=== PATIENT | female | born 1950 | race Caucasian/White ===

== ENCOUNTER 2020-02-06 16:58 | Inpatient (IN) | payer MEDICARE, OTHER ==
[~2020-02-06] VITALS: Ht 149.9 cm; Wt 53.5 kg
[2020-02-06] MEDS ORDERED: ATOR20TA PO (17:41)
[2020-02-06] MEDS ORDERED: ESCI10TA PO (17:41)
[2020-02-06] MEDS ORDERED: BENA5TAB5 PO (17:41)
[2020-02-06] MEDS ORDERED: OLAN5TAB3 PO (17:41)
[2020-02-06] MEDS ORDERED: HALO5AMP2 IJ (17:41)
[2020-02-06] MEDS ORDERED: DIGO250T PO (17:41)
[2020-02-06] MEDS ORDERED: TRAZ-257 PO (17:41)
[2020-02-06] MEDS ORDERED: ACET325T53 PO (17:41)
[2020-02-06] MEDS ORDERED: LEVO50TA8 PO (17:41)
[2020-02-06] MEDS ORDERED: CLOP75TA15 PO (17:41)
[2020-02-06] MEDS ORDERED: LORA2TAB95 PO (17:41)
[2020-02-06] MEDS ORDERED: LOSA100T3 PO (17:41)
[2020-02-06] MEDS ORDERED: ATEN100T PO (17:41)
[2020-02-06] MEDS ORDERED: ONDA4TAB11 PO (17:41)
[2020-02-06 17:59] VITALS: BP 144/84
[2020-02-06] MEDS ORDERED: BLOOD SUGAR DIAGNOSTIC 1 EACH STRIP IN ONE (18:00)
[2020-02-06] MEDS ORDERED: MAGNESIUM HYDROXIDE 30 ML UDC PO PRN (18:00)
[2020-02-06] MEDS ORDERED: ACETAMINOPHEN 325 MG TABLET PO PRN (18:00)
--- NOTE | 2020-02-06 18:02 | NUR ---
GPS/RN RECEIVED PT DIRECT ADMIT FROM Down [facility] (NOEL HAN) BEFORE FROM [facility] AND BEFORE FROM HOME. NO SI OR HI AT THE TIME OF ADMISSION. ADMITTING ORDERS FROM DR REYES RECEIVED AND CARRIED OUT. PROPERTY CHECKED FOR CONTRABAND AND WALLET PLACED IN THE ARC AND GAS WELDER'S SAFE. PT IS ON 5150 HOLD FOR DTS. PT'S AWARE OF ADMISSION AND SPOKE WITH THE PT OVER THE PHONE. PT IS AGITATED ADN, ANXIOUS AND REFUSED TO SIGN ADMITTING PAPERWORK AND REFUSED SKIN ASSESSMENT. SKIN DISCOLORATION BILAT HANDS NOTED. WILL ENDORSE TO CHIEF CONSOLE OPERATOR TO FOLLOW UP WITH ADMISSION.
--- NOTE | 2020-02-06 18:21 | NUR ---
GPS/RN PT REFUSED ACCUCHECK.
--- NOTE | 2020-02-06 18:50 | NUR ---
Dr. Choudhary made aware of the admission and gave orders.
--- NOTE | 2020-02-06 19:28 | NUR ---
RN NOTES: RECEVIED PT. FROM DAY NURSES TO CONTINUTY CARE, AND COMLPETE THE ADMISSION PROCESS.
[2020-02-06 20:11] VITALS: BP 138/64
--- NOTE | 2020-02-06 22:22 | NUR ---
ADMISSION NOTES: ADMITTED THIS 69Y/O FEMALE PATIENT ADMIT FROM [employer] ZONIA GARCIA ( NOEL HAN) BEFORE FROM [facility] AND BEFORE FROM HOME, ADMITTED TO GPS 5150 HOLD DTS, PER HOLD SI AND STATING SHE DOES NOT WANT TO LIVE ANY MORE DUE TO 1 WEEK ENDLESS PAIN,UPON FACE TO FACE ASSESSMENT PATIENT IS A&O X 2,3, UNCOOPERTIVE , EASILY AGITATED ,ANXIOUS ,PARANOID , DISORGNIZED ,DISHELVED, DEPREESED ,POOR HYGINE ,EASILY GETS AGITATED, DENIES SI /HI AT THIS TIME, PT. IS POOR HISTORIAN, POOR INSIGHT ,POOR JUDGEMENT , PT. REFUSED TO SIGNS ADMISSION CONSENT PAPERS, DUE TO MENTAL STATUS , REFUSED SHOWER AND REFUSED CHANGE TO THE HOSPITAL GOWN, DUE TO MENTAL STATUS , PT. REFUSED FULL BODY SKIN ASSESSMENT AND PICTURES TAKEN, ENCOURAGED X3 RISKS BENEFITS EXPLINED , PT. STRONGLY REFUSED ,BOTH MD AWARE AND NOTIFIED OF THE ADMISSION, BELONGINGS CONTRABAND WERE DONE ,PT. RIGHTS DISCUSS BY HAND TENNIS BALL COVERER , PROVIDE THE PT. WITH HANDBOOK, AND MEDICATIONS GUIDE, ENVIRONMENTAL SAFETY CHECK DONE, ENCOURAGED PT. VERBALIZED ANY FEELING CONCERN TO STAFF, ORIENT TO UNIT POLICY, NO ACUTE DISTRESS NOTED,VITAL SIGNS WNL ,DENIES ANY PAIN AT THIS TIME,WILL CONTINUE TO MONITOR FOR Q15 SAFETY AND BEHAVIOR.
--- NOTE | 2020-02-06 22:38 | NUR ---
RN NOTES : PT. REFUSED SKIN ASSESSMENT AND PICTURES TAKEN, BUT VISUALLY NOTED WITH SKIN DISCOLORATIONS ,ENCOURAGED X3 PT. STRONGLY REFUSED , AND PT. BEHAVIOR VERY UNCCOERTIVE AGGRESSIVE , WILL CONTINUITY WITH CARE.
--- NOTE | 2020-02-06 23:58 | NUR ---
RN NOTES : REFUSAL VACCINE PT. REFUSED PNEUMOCOCCAL AND INFLUENZA VACCINE ,ENCOURAGED X3, PT. STRONGLY REFUSED , AND PT. BEHAVIOR VERY UNCCOERTIVE AGGRESSIVE , PER PT. I AM GOING HOME SOONER , I DONT WANTS ANY VACCINE , WILL CONTINUITY WITH CARE.
--- NOTE | 2020-02-07 06:46 | NUR ---
GPS RN NOTES: PT. RESTING IN HER ROOM, PT.REMAINED STABLE THROUGHOUT SHIFT, NO S/S OF DISTRESS NOTED , ALL CARE NEEDS MET ANTICIPATED. MED COMPLIANT ,PT. BEHAVIOR ,PARANOID EASILY AGITATED, NEEDS FREQUENTLY REDIRECTIONS ,WILL CONTINUE TO MONITOR FOR SAFETY BEHAVIOR, AND ENDORSE TO AM SHIFT FOR CONTINUITY OF CARE.
[2020-02-07 07:03] LABS: ALBUMIN 3.2 g/dL (3.4-5.0); BILIRUBIN,TOTAL 0.3 mg/dL (0.2-1.0); CALCIUM, SERUM 8.7 mg/dL (8.5-10.1); CREATININE 0.7 mg/dL (0.6-1.3); POTASSIUM 3.5 mmol/L (3.5-5.1); TOTAL PROTEIN, SERUM 6.5 g/dL (6.4-8.2)
[2020-02-07] MEDS: LEVOTHYROXINE SODIUM 50 MCG TABLET PO SCH (07:03)
[2020-02-07 07:43] LABS: DIGOXIN 0.11 ng/mL (0.90-2.00)
[2020-02-07 08:36] VITALS: BP 153/90
[2020-02-07] MEDS: BENAZEPRIL HCL 5 MG TABLET PO SCH (08:38)
[2020-02-07] MEDS: LOSARTAN POTASSIUM 50 MG TABLET PO SCH (08:38)
[2020-02-07] MEDS: ATENOLOL 50 MG TABLET PO SCH (08:40)
[2020-02-07] MEDS: CLOPIDOGREL BISULFATE 75 MG TABLET PO SCH ×2 (08:40→08:45)
[2020-02-07] MEDS: DIGOXIN 0.25 MG TABLET PO SCH (08:41)
--- NOTE | 2020-02-07 09:12 | NUR ---
Pt. refused to take the Plavix tab, explained on the importance and still refusing and said she is not taking Plavix.
[2020-02-07] MEDS: OLANZAPINE 2.5 MG TABLET PO SCH ×2 (12:54→16:21)
[2020-02-07] MEDS ORDERED: OLANZAPINE 2.5 MG TABLET PO PRN (13:00)
[2020-02-07 16:00] VITALS: BP 156/75
--- NOTE | 2020-02-07 18:40 | NUR ---
Called [facility] to page Dr. Rehman regarding pt. is complaining of back pain and asking med.
--- NOTE | 2020-02-07 18:45 | NUR ---
Received a call from Dr. Rehman and ordered Tramadol 50 mg q6hr prn for pain
--- NOTE | 2020-02-07 19:00 | NUR ---
RECEIVED LIZZIE IN HER ROOM SITTING ON THE EDGE OF THE BED DOING CROOSWORD PUZZELS. C/O HER BACK IS IN PAIN AND THAT SHE HAS HAD 9 BACK SURGERIES. TRAMADOL ORDERED BY THE MD. SHE IS IRRITABLE VOICE INDICATED. SHE IS CONCERNED SHE NEED HER MEDICATIONS SHE IS REQUISTING A SLEEPING MEDICATION. HER GAIT IS STEADY SHE USES A WALKER
[2020-02-07 19:47] VITALS: BP 154/62
[2020-02-07] MEDS ORDERED: OLANZAPINE 10 MG TABLET PO SCH (20:00)
[2020-02-07] MEDS: TRAMADOL HCL 50 MG TABLET PO PRN (20:17)
[2020-02-07 20:33] VITALS: BP 154/62
[2020-02-07] MEDS: LORAZEPAM 0.5 MG TABLET PO PRN (21:45)
[2020-02-07] MEDS: ATORVASTATIN 10 MG TABLET PO SCH (21:47)
[2020-02-08] MEDS: TRAMADOL HCL 50 MG TABLET PO PRN ×2 (02:06→20:15)
--- NOTE | 2020-02-08 04:51 | NUR ---
CLOSING NOTES: SAT WITH PATIENT FOR 20 MINUTES AND ALLOWED HER TO TALK.SHE TALKED OF HER BACK SURGERY SHE STATED SHE HAS HAD 9 SURGERIES. SHE STATED SHE HAS BEEN TAKING NORCO FOR 18 YEARS "SHE IS NOT ADDICTED TO THE MEDICATION SHE TAKES IT BECAUSE IT WORKS" HER SON IS A DENTIST AND DTR A PSY MD SHE SPEAKS PROUDLY OF THEM. SHE DIDN'T MENTION HER IN THIS CONVERSATION' SHE DOES CROSSWORD PUZZULES SHE WAS AWAKE UNTIL 4AM AND THEN LAID DOWN IN HER BED.
[2020-02-08] MEDS: LEVOTHYROXINE SODIUM 50 MCG TABLET PO SCH (06:45)
[2020-02-08 08:00] VITALS: BP 123/61
[2020-02-08] MEDS: DIGOXIN 0.25 MG TABLET PO SCH (08:09)
[2020-02-08] MEDS: BENAZEPRIL HCL 5 MG TABLET PO SCH (08:09)
[2020-02-08] MEDS: OLANZAPINE 2.5 MG TABLET PO SCH ×2 (08:09→16:45)
[2020-02-08] MEDS: ATENOLOL 50 MG TABLET PO SCH (08:10)
[2020-02-08] MEDS: LOSARTAN POTASSIUM 50 MG TABLET PO SCH (08:10)
[2020-02-08] MEDS: CLOPIDOGREL BISULFATE 75 MG TABLET PO SCH (08:14)
[2020-02-08] MEDS ORDERED: HYDROCODONE/APAP 5/325MG TABLET PO PRN (08:30)
[2020-02-08] MEDS: HYDROCODONE/APAP 5/325MG TABLET PO PRN ×3 (08:34→22:55)
--- NOTE | 2020-02-08 08:36 | NUR ---
RN notes/pain medication Patient c/o of back pain and requested for Leola. PRN Leola 5/325mg tab given at 0834. Will continue to monitor and reassess pt.
--- NOTE | 2020-02-08 13:50 | NUR ---
RN notes Dr Nichols called with order to give pt Elavil 10mg @ HS. Informed him that he needs to sign consent for the medication and he said he will come tomorrow to sign. CN made aware. Will continue to monitor.
[2020-02-08 16:00] VITALS: BP 154/82
--- NOTE | 2020-02-08 16:50 | NUR ---
RN notes/pain medication Patient verbalized that she has back pain and requested for [place]. PRN [place] 5/325mg tab given at 1649. Will continue to monitor and reassess pt.
[2020-02-08 20:00] VITALS: BP 126/59
[2020-02-08] MEDS ORDERED: OLANZAPINE 5 MG TABLET PO SCH (20:00)
--- NOTE | 2020-02-08 20:15 | NUR ---
GPS/RN NOTE Patient c/o of back pain level 9 aching and throbbing. Administered PRN tramadol as ordered. VSS. Will continue to monitor.
[2020-02-08] MEDS: ATORVASTATIN 10 MG TABLET PO SCH (21:12)
--- NOTE | 2020-02-08 21:33 | NUR ---
GPS/RN OPENING NOTE Patient awake in bed, A/O x3 calm and cooperative. No acute distress or SOB noted. Patient denies pain, N/V/D. Patient is ambulatory with walker. Med compliant. Denies SI/HI. Needs met. Will continue to monitor for safety and behavior.
--- NOTE | 2020-02-08 22:56 | NUR ---
GPS/RN NOTE Patient c/o pain level 7, low back, throbbing and aching. Administered PRN norco as ordered. VSS. Will continue to monitor.
[2020-02-09] MEDS: LEVOTHYROXINE SODIUM 50 MCG TABLET PO SCH (06:28)
[2020-02-09 08:00] VITALS: BP 174/63
[2020-02-09] MEDS: BENAZEPRIL HCL 5 MG TABLET PO SCH (08:10)
[2020-02-09] MEDS: OLANZAPINE 2.5 MG TABLET PO SCH ×2 (08:10→16:24)
[2020-02-09] MEDS: HYDROCODONE/APAP 5/325MG TABLET PO PRN ×2 (08:10→19:41)
[2020-02-09] MEDS: LOSARTAN POTASSIUM 50 MG TABLET PO SCH (08:11)
[2020-02-09] MEDS: CLOPIDOGREL BISULFATE 75 MG TABLET PO SCH (08:12)
[2020-02-09] MEDS: ATENOLOL 50 MG TABLET PO SCH (08:12)
[2020-02-09] MEDS: DIGOXIN 0.25 MG TABLET PO SCH (09:00)
--- NOTE | 2020-02-09 09:33 | NUR ---
Held Digoxin patient pulse 57. Will continue to monitor.
--- NOTE | 2020-02-09 10:06 | NUR ---
GPS/RN Open Notes Patient resting in bed A/0 x2-3 calm and cooperative with no signs of distress. Able to communicate needs, ambulates with a steady gait. Denies HI/SI. Patient encouraged to verbalize feelings. Will continue to monitor behavior and safety.
--- NOTE | 2020-02-09 10:09 | NUR ---
FAMILY CONTACT: SW contacted pts daughter Arleth ([phone]) and left a voicemail for callback.
--- NOTE | 2020-02-09 10:45 | NUR ---
FAMILY CONTACT: SW contacted pts daughter Arleth ([phone]) who confirms pt is able to return once stable for discharge. Per daughter pt is currently under the care of psychiatrist Dr. Patrick Peña Address: [address], [place] [address] but states pt has a new psychiatrist whom she will be following up with Dr. Celean To Address: [address], [place] [address] .
--- NOTE | 2020-02-09 11:02 | NUR ---
INITIAL DISCHARGE PLAN: Pt wishes to return to her home [address] [place] [address]. SW contacted pts daughter Arleth ([phone]) who confirms pt is able to return once stable for discharge. WESLEY will help form a safe and proper discharge in collaboration with .
--- NOTE | 2020-02-09 13:20 | NUR ---
PATIENT REFUSED BLOOD DRAW AFTER EXPLAINING THE RISKS AND BENEFITS, PATIENT REFUSED AGAIN.
--- NOTE | 2020-02-09 13:34 | NUR ---
INFORMED DR. REYES ABOUT DR. ABAD ORDER ELAVIL 10 MG AT HS CONSENT TO BE SIGNED BY HER. DR. REYES SAID WILL HOLD ON THAT MEDICATION FOR NOW, CONSENT NOT SIGNED BY DR. REYES.
--- NOTE | 2020-02-09 14:44 | NUR ---
GROUP NOTE: SW encouraged pt to attend group therapy on this present day. Pt refused, pt is irritable and anxious stating she wants to leave today and states she does not need to be here. SW attempted to provide reality orientation and pt refused to engage.
[2020-02-09 16:00] VITALS: BP 149/59
[2020-02-09 19:36] VITALS: BP 146/71
--- NOTE | 2020-02-09 19:42 | NUR ---
GPS RN NOTES: UPPER BACK PAIN PT C/O OF 10/09 UPPER BACK PAIN. PT REQUEST NORCO PRN ORDERED. PT TOLERATED MEDICATION WELL. CONTINUE TO MONITOR
[2020-02-09] MEDS ORDERED: OLANZAPINE 2.5 MG TABLET PO SCH (20:00)
[2020-02-09 20:46] VITALS: BP 144/68
[2020-02-09] MEDS: ATORVASTATIN 10 MG TABLET PO SCH (21:10)
--- NOTE | 2020-02-09 21:10 | NUR ---
GPS RN NOTES: REFUSED LIPITOR PT REFUSED NLIPITOR ORDERED. EXPLAIN RISKS AND BENEFITS. PT STILL REFUSED X3. CONTINUE TO MONITOR
[2020-02-09] MEDS ORDERED: AMITRIPTYLINE HCL 10 MG TABLET PO SCH (22:00)
[2020-02-09 22:47] VITALS: BP 131/69
[2020-02-09] MEDS: LORAZEPAM 0.5 MG TABLET PO PRN (22:52)
--- NOTE | 2020-02-09 22:53 | NUR ---
GPS RN NOTES: ANXIOUS PT C/O OF FEELING ANXIOUS. VITALS CHECKED WNL. OFFERED ATIVAN PRN ORDERED. PT AGREED AND TOLERATED MEDICATION WELL. CONTINUE TO MONITOR.
[2020-02-10] MEDS: HYDROCODONE/APAP 5/325MG TABLET PO PRN ×3 (01:48→19:38)
--- NOTE | 2020-02-10 01:50 | NUR ---
GPS RN NOTES: UPPER BACK PAIN PT C/O OF 10/09 UPPER BACK PAIN. VITALS CHECKED WNL. NO SOB. NO RESP DISTRESS. BREATHING EVEN AND UNLABORED. PT REQUEST NORCO PRN ORDERED. PT TOLERATED MEDICATION WELL. CONTINUE TO MONITOR
[2020-02-10] MEDS: LORAZEPAM 0.5 MG TABLET PO PRN (05:00)
--- NOTE | 2020-02-10 05:01 | NUR ---
GPS RN NOTES: ANXIOUS UPON DOING ROUNDS, PT AWAKE AND CRYING. PT C/O OF FEELING ANXIOUS. VITALS CHECKED WNL. OFFERED ATIVAN PRN ORDERED. PT AGREED AND TOLERATED MEDICATION WELL. CONTINUE TO MONITOR.
[2020-02-10] MEDS: LEVOTHYROXINE SODIUM 50 MCG TABLET PO SCH (07:00)
[2020-02-10] MEDS: BLOOD SUGAR DIAGNOSTIC 1 EACH STRIP IN SCH ×3 (07:30→17:12)
[2020-02-10 08:00] VITALS: BP 170/66
[2020-02-10] MEDS: BENAZEPRIL HCL 5 MG TABLET PO SCH (08:58)
[2020-02-10] MEDS: ATENOLOL 50 MG TABLET PO SCH (08:58)
[2020-02-10] MEDS: OLANZAPINE 2.5 MG TABLET PO SCH ×2 (08:59→17:22)
[2020-02-10] MEDS: LOSARTAN POTASSIUM 50 MG TABLET PO SCH (08:59)
[2020-02-10] MEDS: CLOPIDOGREL BISULFATE 75 MG TABLET PO SCH (08:59)
[2020-02-10] MEDS: DIGOXIN 0.25 MG TABLET PO SCH (09:02)
--- NOTE | 2020-02-10 10:51 | NUR ---
RN-CO: PATIENT REFUSED LAB DRAW.
[2020-02-10 13:07] LABS: BASOPHILS # (AUTO) 0.1 /CMM (0.0-0.2); BASOPHILS % (AUTO) 2.3 % (0.0-2.0); EOSINOPHILS % (AUTO) 2.4 % (0.0-6.0); HEMATOCRIT 40 % (33-45); LYMPHOCYTES % (AUTO) 21.2 % (20.0-44.0); MEAN CORPUSCULAR HGB CONC 32 g/dl (31.0-36.0); MEAN CORPUSCULAR VOLUME 80 fL (82-100); MONOCYTES # (AUTO) 0.2 /CMM (0.1-1.30); MONOCYTES % (AUTO) 5.1 % (2.0-12.0); NEUTROPHILS # (AUTO) 3.1 /CMM (1.8-8.9); PLATELET COUNT (AUTO) 361 /CMM (150-450); RED BLOOD CELL COUNT(AUTO) 4.98 MIL/uL (4.0-5.2); WHITE BLOOD COUNT (AUTO) 4.5 K/uL (4.3-11.0)
[2020-02-10 13:23] LABS: BILIRUBIN,TOTAL 0.7 mg/dL (0.2-1.0); CALCIUM, SERUM 9.2 mg/dL (8.5-10.1); CREATININE 0.9 mg/dL (0.6-1.3); POTASSIUM 3.9 mmol/L (3.5-5.1); TOTAL PROTEIN, SERUM 7.6 g/dL (6.4-8.2)
--- NOTE | 2020-02-10 14:02 | NUR ---
RN NOTE:PATIENT C/O PAIN IN HER BACK MEDICATED WITH NORCO WILL CONTINUE TO MONITOR .
--- NOTE | 2020-02-10 14:45 | NUR ---
GROUP NOTE: SW encouraged pt to attend group on this day. Pt was asleep and not easily roused by verbal cues.
[2020-02-10 16:00] VITALS: BP 146/70
--- NOTE | 2020-02-10 19:39 | NUR ---
rn gps note patient complained of pain to generalized area states 10/10 requested for norco prn. vs wnl. will continue to monitor for effectiveness.
[2020-02-10] MEDS ORDERED: OLANZAPINE 2.5 MG TABLET PO SCH (20:00)
[2020-02-10 20:03] VITALS: BP 135/65
[2020-02-10] MEDS: ATORVASTATIN 10 MG TABLET PO SCH (20:59)
[2020-02-11] MEDS: LORAZEPAM 0.5 MG TABLET PO PRN ×3 (00:37→21:05)
--- NOTE | 2020-02-11 00:38 | NUR ---
rn gps notes noted patient anxious, states " its my nervous". ativan prn offered patient agreed, prn given as ordered, will continue to monitor for effectiveness.
[2020-02-11] MEDS: HYDROCODONE/APAP 5/325MG TABLET PO PRN ×4 (03:05→22:46)
[2020-02-11] MEDS: BLOOD SUGAR DIAGNOSTIC 1 EACH STRIP IN SCH (07:23)
[2020-02-11 08:00] VITALS: BP 120/74
[2020-02-11] MEDS: OLANZAPINE 2.5 MG TABLET PO SCH ×2 (08:32→16:42)
[2020-02-11] MEDS: LEVOTHYROXINE SODIUM 50 MCG TABLET PO SCH (08:32)
[2020-02-11] MEDS: ATENOLOL 50 MG TABLET PO SCH (08:37)
[2020-02-11] MEDS: DIGOXIN 0.25 MG TABLET PO SCH (08:38)
[2020-02-11] MEDS: LOSARTAN POTASSIUM 50 MG TABLET PO SCH (08:38)
[2020-02-11] MEDS: BENAZEPRIL HCL 5 MG TABLET PO SCH (08:38)
[2020-02-11] MEDS: CLOPIDOGREL BISULFATE 75 MG TABLET PO SCH (08:39)
--- NOTE | 2020-02-11 09:20 | NUR ---
RN NOTE: PATIENT C/O GENERALIZED PAIN NORCO GIVEN PER ORDER WILL CONTINUE TO MONITOR .
--- NOTE | 2020-02-11 12:32 | NUR ---
GROUP NOTE: SW encouraged pt to attend group on this day. Pt was asleep and not easily roused by verbal cues.
--- NOTE | 2020-02-11 12:43 | NUR ---
FAMILY CONTACT: WESLEY contacted pts daughter Arleth ([phone]) to inform her MD is planning pts discharge for Sunday or Sunday. Daughter states she rather have pt home on Sunday as pts really misses pt and wants her home as soon as possible. WESLEY informed her that discharge will be on Sunday02/13/20 and will call her tomorrow to coordinate a molded goods spot picker time. Daughter agreed.
--- NOTE | 2020-02-11 12:59 | NUR ---
GPS RN NOTES: ANXIOUS PT C/O OF FEELING ANXIOUS. ATIVAN PRN GIVEN ORDERED. PT AGREED AND TOLERATED MEDICATION WELL. CONTINUE TO MONITOR.
--- NOTE | 2020-02-11 15:33 | NUR ---
RN NOTE: PATIENT C/O GENERALIZED PAIN NORCO GIVEN PER ORDER WILL CONTINUE TO MONITOR .
[2020-02-11 16:00] VITALS: BP 126/89
[2020-02-11] MEDS ORDERED: OLANZAPINE 10 MG TABLET PO SCH (20:00)
[2020-02-11 20:02] VITALS: BP 127/52
[2020-02-11] MEDS: MAG HYDROX/AL HYDROX/SIMETH 30 ML UDC PO PRN (20:14)
--- NOTE | 2020-02-11 20:16 | NUR ---
GPS RN NOTE: INDIGESTION PT. C/O OF INDIGESTION. ADMINISTERED MAALOX 30 ML PO PRN ORDERED. WILL CONTINUE TO MONITOR.
--- NOTE | 2020-02-11 21:15 | NUR ---
GPS RN NOTE: ANXIETY PT. C/O OF BEING ANXIOUS. ADMINISTERED ATIVAN 0.5 MG PO PRN ORDERED. WILL CONTINUE TO MONITOR
[2020-02-11] MEDS: ATORVASTATIN 10 MG TABLET PO SCH (21:16)
--- NOTE | 2020-02-11 21:16 | NUR ---
GPS RN NOTE: MEDICATION REFUSAL PT. REFUSED SCHEDULED 2200 MEDICATION LIPITOR 20 MG. STATES" I DON'T HAVE CHOLESTEROL PROBLEMS." EXPLAINED RISKS AND BENEFITS. OFFERED 3 X AND STILL REFUSED. WILL CONTINUE TO MONITOR
--- NOTE | 2020-02-11 22:48 | NUR ---
GPS RN NOTE: PATIENT C/O GENERALIZED PAIN. ADMINISTERED NORCO PO PRN ORDERED. WILL CONTINUE TO MONITOR .
[2020-02-12] MEDS: LORAZEPAM 0.5 MG TABLET PO PRN ×2 (03:14→10:53)
--- NOTE | 2020-02-12 03:17 | NUR ---
GPS RN NOTE: ANXIETY PT. C/O OF BEING ANXIOUS. ADMINISTERED ATIVAN 0.5 MG PO PRN ORDERED. WILL CONTINUE TO MONITOR
[2020-02-12] MEDS: LEVOTHYROXINE SODIUM 50 MCG TABLET PO SCH (07:35)
--- NOTE | 2020-02-12 08:45 | NUR ---
GPS RN NOTE: T.O. ORDER FROM DR. GATICA HOLD BP AND DIGOXIN MEDICATIONS NOW DISCONTINUE BENAZEPRIL 5 MG PO DAILY ORDER PLACED AND CARED OUT WILL CONTINUE MONITORING
[2020-02-12 08:49] VITALS: BP 114/53
[2020-02-12] MEDS: BENAZEPRIL HCL 5 MG TABLET PO SCH (08:54)
[2020-02-12] MEDS: DIGOXIN 0.25 MG TABLET PO SCH (08:54)
[2020-02-12] MEDS: LOSARTAN POTASSIUM 50 MG TABLET PO SCH (08:54)
[2020-02-12] MEDS: CLOPIDOGREL BISULFATE 75 MG TABLET PO SCH (08:55)
[2020-02-12] MEDS: ATENOLOL 50 MG TABLET PO SCH (08:55)
--- NOTE | 2020-02-12 08:58 | NUR ---
WESLEY COORDINATION OF CARE: WESLEY contacted psychiatrist Dr. Celena To Address: [address], [place] [address] and left a voicemail requesting a callback to schedule an appointment.
[2020-02-12] MEDS: HYDROCODONE/APAP 5/325MG TABLET PO PRN ×3 (09:05→22:32)
[2020-02-12] MEDS: OLANZAPINE 2.5 MG TABLET PO SCH ×3 (09:06→16:26)
--- NOTE | 2020-02-12 09:07 | NUR ---
GPS RN NOTE: RECHECKED PT BP 144/61 P 52 PT COMPLAINING OF GENERALIZED PAIN 01/09 NORCO GIVEN
--- NOTE | 2020-02-12 09:12 | NUR ---
FAMILY CONTACT: WESLEY contacted pts thien Reinoso ([phone]) to coordinate pts discharge for tomorrow. Daughter will pickling operator pt at 10:00am. WESLEY also informed daughter of pts PC HEARING on this present day and informed her pt may be released by the court on this day. Daughter agreed.
--- NOTE | 2020-02-12 10:54 | NUR ---
GPS RN NOTE: ANXIETY PT. C/O OF BEING ANXIOUS. ADMINISTERED ATIVAN 0.5 MG PO PRN ORDERED. WILL CONTINUE TO MONITOR
[2020-02-12] MEDS: MAG HYDROX/AL HYDROX/SIMETH 30 ML UDC PO PRN ×2 (13:48→19:42)
--- NOTE | 2020-02-12 14:23 | NUR ---
PC Hearing: Pts 5250 hold was upheld for danger to self and grave disability.
--- NOTE | 2020-02-12 14:29 | NUR ---
Family Contact: SW contacted pts daughter Arleth ([phone]) and informed her that the pts hearing was upheld and that the discharge is set to take place the following day. Pts daughter confirmed that she will arrive at 10am.
--- NOTE | 2020-02-12 15:22 | NUR ---
GPS RN NOTE: PATIENT C/O GENERALIZED PAIN. ADMINISTERED NORCO PO PRN ORDERED. WILL CONTINUE TO MONITOR .
[2020-02-12 16:13] VITALS: BP 118/62
--- NOTE | 2020-02-12 16:27 | NUR ---
Group Note: SW encouraged the pt to attend group therapy on 02/12/20 on discharge planning. Pt stated that she is aware that her daughter is picking her up from the hospital the following day in the morning and she stated that she is content and cannot wait to go back to her home. She stated that she has learned her lesson and will never want to take her life.
[2020-02-12] MEDS: TRAMADOL HCL 50 MG TABLET PO PRN (18:16)
--- NOTE | 2020-02-12 18:19 | NUR ---
GPS RN NOTE:PAIN PT COMPLAINING OF GENERALIZED PAIN 8/10 TRAMADOL 50 MG PRN GIVEN PER ORDER WILL CONTINUE MONITORING.
[2020-02-12] MEDS ORDERED: OLANZAPINE 10 MG TABLET PO SCH (20:00)
--- NOTE | 2020-02-12 20:07 | NUR ---
GPS RN NOTE: PT COMPLAINED OF INDIGESTION. MAALOX 30ML 1 CUP GIVEN PO PRN ORDERED AT 1941. WILL CONTINUE TO MONITOR.
[2020-02-12 20:18] VITALS: BP 140/68
[2020-02-12] MEDS: ATORVASTATIN 10 MG TABLET PO SCH (22:00)
--- NOTE | 2020-02-12 22:18 | NUR ---
GPS RN NOTE: PT REFUSED 2200 LIPITOR 10MG/2TABS ORDERED. WILL CONTINUE TO MONITOR
--- NOTE | 2020-02-12 22:36 | NUR ---
GPS RN NOTE: PT COMPLAINING OF GENERALIZED BODY PAIN. RATES PAIN LEVEL 8/10, NORCO 5/325MG 1TAB GIVEN PO PRN ORDERED. WILL CONTINUE TO MONITOR.
[2020-02-13] MEDS: LORAZEPAM 0.5 MG TABLET PO PRN (01:21)
--- NOTE | 2020-02-13 01:29 | NUR ---
GPS RN NOTE: PT COMPLAINED OF ANXIETY, ATIVAN 0.5MG/1TAB GIVEN PO PRN ORDERED AT 0121. WILL CONTINUE TO MONITOR.
--- NOTE | 2020-02-13 06:41 | NUR ---
GPS RN CLOSING NOTE: PT IS CURRENTLY LAYING ON BED AWAKE. SLEPT 4 HR THIS SHIFT. NO S/S OF DISTRESS. RESPIRATION EVEN AND UNLABORED WITH EQUAL RISE AND FALL OF THE CHEST ON ROOM AIR. ALL PT CARE NEEDS MET ANTICIPATED. BED IS LOCKED AND IN LOWEST POSITION. WILL CONTINUE TO MONITOR AND ENDORSE TO AM SHIFT.
[2020-02-13 07:46] VITALS: BP 147/60
[2020-02-13] MEDS: LEVOTHYROXINE SODIUM 50 MCG TABLET PO SCH (08:01)
[2020-02-13] MEDS: OLANZAPINE 2.5 MG TABLET PO SCH (08:01)
[2020-02-13] MEDS: CLOPIDOGREL BISULFATE 75 MG TABLET PO SCH (08:01)
[2020-02-13] MEDS: LOSARTAN POTASSIUM 50 MG TABLET PO SCH (08:01)
[2020-02-13 08:02] VITALS: BP 147/60
[2020-02-13] MEDS: ATENOLOL 50 MG TABLET PO SCH (08:02)
[2020-02-13] MEDS: DIGOXIN 0.25 MG TABLET PO SCH (08:02)
--- NOTE | 2020-02-13 08:22 | NUR ---
DISCHARGE NOTE: Pt will be discharged at 10:00am via private vehicle back home [address] [place] [address]. Pts daughter Arleth ([phone]) will be picking pt up and transporting home. Pts mood is anxious with congruent affect. Pt denies visual/auditory hallucinations and denies suicidal/homicidal ideation. Pt is alert and oriented x3, is ambulatory, and appropriately dressed and groomed. SW contacted pts Psychiatrist: Dr. Celena To Address: [address], [place] [address] and left a second voicemail requesting appointment time. Daughter was made aware and advised to call later today to schedule an appointment, daughter agreed. Pt will also follow up with [employer] Ins[employer] Manager: Dr. Eric Vega Address: [address], [place] [address] on Sunday03/01/20 at 10:00am. The multidisciplinary exitcare form was done, printed, signed, and given to the patient.
--- NOTE | 2020-02-13 10:05 | NUR ---
GPS/RN PT DISCHARGED BACK HOME. PT IS A PT'S RIDE. NO SI OR HI AT THE TIME OF DISCHARGE. PRESCRIPTIONS CALLED TO THE PT PHARMACY( [facility]). EXIT CARE INSTRUCTIONS GIVEN AND UNDERSTOOD. PROPERTY RETURNED.AMBULATORY .VSS. SEEN BY DR REYES PRIOR TO DISCHARGE.
== END 2020-02-13 10:05 | disposition home or self-care (01) | DRG 885 ==
LOC: GPS 16:58
PROVIDERS: ADMIT Psychiatry & Neurology Psychosomatic Medicine; ATTEND Internal Medicine
DX: F33.3 Major depressive disorder, recurrent, severe with psychotic symptoms (principal); E43 Unspecified severe protein-calorie malnutrition; F23 Brief psychotic disorder; R45.851 Suicidal ideations; I69.351 Hemiplegia and hemiparesis following cerebral infarction affecting right dominant side; E11.9 Type 2 diabetes mellitus without complications; E78.5 Hyperlipidemia, unspecified; E03.9 Hypothyroidism, unspecified; F41.9 Anxiety disorder, unspecified; I25.10 Atherosclerotic heart disease of native coronary artery without angina pectoris; M79.7 Fibromyalgia; I10 Essential (primary) hypertension; G89.29 Other chronic pain; M54.40 Lumbago with sciatica, unspecified side; Z73.6 Limitation of activities due to disability; M62.81 Muscle weakness (generalized); E88.09 Other disorders of plasma-protein metabolism, not elsewhere classified; Z68.23 Body mass index [BMI] 23.0-23.9, adult; G43.909 Migraine, unspecified, not intractable, without status migrainosus; M54.12 Radiculopathy, cervical region; M54.16 Radiculopathy, lumbar region
CPT/HCPCS: 36415; 80053-TC; 80061-TC; 80162-TC; 82962-TC; 85025-TC; 87081-TC; 92526; 92611-TC; 97116-TC; 97530-TC